=== PATIENT | male | born 1995 | race Caucasian/White ===

== ENCOUNTER 2023-05-30 19:58 | Inpatient (IN) | payer MEDICAID, SELFPAY ==
[2023-05-30 19:59] VITALS: BP 150/99; PULSE 100; RESP 16; TEMP 36.6; O2SAT 99; BMI 23.6
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
[2023-05-30 20:35] LABS: Absolute Lymphocyte Count 2.51 X10^3/uL (0.83-4.51); Absolute Neutrophil Count 8.4 X10^3/uL (2.0-7.7); Basophil# 0.04 X10^3/uL; Basophil% 0.3 % (0-1); Eosinophil# 0.08 X10^3/uL; Eosinophils% 0.7 % (0-5); Hematocrit 42.9 % (40-54); Lymphocyte # 2.51 X10^3/ul (0.83-4.51); Lymphocyte % 20.5 % (19-41); Mean Corp Hgb Conc 32.6 g/dL (32-36); Mean Corpuscular Hgb 28.5 pg (27.0-32.0); Mean Corpuscular Volume 87.2 fL (80-94); Mean Platelet Vol. 8.8 fl (6.2-12.0); Monocyte# 1.09 X10^3/uL; Monocyte% 8.9 % (0-10); NRBC Flagged by Analyzer 0 % (0-5); Neutrophil # 8.44 X10^3/uL (2.7-7.7); Neutrophil % 69.1 % (47-70); Platelet Count 397 K/mm3 (150-450); RBC Distribution Width CV 13.7 % (11.6-14.6); RBC Distribution Width SD 44.2 fl (35.1-43.9); Red Blood Count 4.92 M/mm3 (4.6-6.2); White Blood Count 12.2 K/mm3 (4.4-11.0)
[2023-05-30 20:51] LABS: AST(SGOT) 24 U/L (15-37); Alanine Aminotransfer ALT/SGPT 33 U/L (16-61); Albumin, Serum 3.9 g/dL (3.2-5.0); Alkaline Phosphatase 86 U/L (45-117); Anion Gap 5 (5-15); BUN 9 mg/dL (7-18); BUN/Creat Ratio 10.9 RATIO (10-20); Chloride 105 mmol/L (98-107); Creatinine, Serum 0.82 mg/dL (0.70-1.30); EST Glomerular Filtration Rate 118 mL/min (>60); Est Glom Filt Rate - Afr Amer 143 mL/min (>60); Estimated Creatinine Clearance 147.21 ml/min; Glucose 59 mg/dL (74-106); Potassium 3.4 mmol/L (3.5-5.1); Protein, Total 7.9 g/dL (6.4-8.2); Sodium Level 137 mmol/L (136-145)
[2023-05-30] MEDS: Thiamine Hydrochloride 100 MG Tablet PO (21:10)
[2023-05-30] MEDS: Folic Acid 1 MG Tablet PO (21:10)
[2023-05-30 21:23] LABS: Amphetamine Urine VISTA NEGATIVE (<1000 ng/mL); Barbiturate Urine VISTA NEGATIVE (< 200 ng/mL); Benzodiazepine Urine VISTA NEGATIVE (< 200 ng/mL); Cocaine Urine VISTA POSITIVE (< 300 ng/mL); Ecstacy Urine VISTA NEGATIVE (< 500 ng/mL); Methadone Urine VISTA NEGATIVE (< 300 ng/mL); PCP Urine VISTA NEGATIVE (< 25 ng/mL); THC Urine VISTA POSITIVE (< 50 ng/mL); Vista UDS pH Range 6
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
[2023-05-30 21:49] LABS: Bedside Glucose 110 mg/dL (74-106)
[2023-05-30 23:17] VITALS: BP 137/84; PULSE 98; RESP 16; O2SAT 99
[2023-05-30 23:33] VITALS: BP 120/83; PULSE 88; RESP 18; TEMP 36.7; O2SAT 97
[2023-05-30 23:39] VITALS: BMI 23.6
[2023-05-31] MEDS: Phenobarbital 32.4 MG Tablet 64.8 MG PO ×6 (01:04→21:40)
[2023-05-31] MEDS: MELATONIN 3 MG TABLET PO (01:04)
[2023-05-31] MEDS: 0.9% Normal Saline (1000mL) 1,000 ML 150 ML IV ×2 (01:05→06:59)
[2023-05-31] MEDS: Potassium Chloride Oral Tablet 20 MEQ 40 MEQ PO (03:11)
[2023-05-31] MEDS: Gabapentin 300 MG Capsule PO (03:13)
[2023-05-31 05:44] VITALS: BP 101/70; PULSE 60; RESP 16; TEMP 36.3; O2SAT 98
[2023-05-31] MEDS: hydrOXYzine PAM 25 MG Capsule 50 MG PO ×2 (05:49→17:20)
[2023-05-31 08:04] LABS: Absolute Lymphocyte Count 3.59 X10^3/uL (0.83-4.51); Absolute Neutrophil Count 3.6 X10^3/uL (2.0-7.7); Basophil# 0.04 X10^3/uL; Basophil% 0.5 % (0-1); Eosinophils% 2.4 % (0-5); Hematocrit 42.6 % (40-54); Hemoglobin 13.7 g/dL (13.0-16.5); Lymphocyte # 3.59 X10^3/ul (0.83-4.51); Lymphocyte % 43.7 % (19-41); Mean Corp Hgb Conc 32.2 g/dL (32-36); Mean Corpuscular Hgb 28.4 pg (27.0-32.0); Mean Corpuscular Volume 88.4 fL (80-94); Mean Platelet Vol. 9.1 fl (6.2-12.0); Monocyte# 0.78 X10^3/uL; Monocyte% 9.5 % (0-10); NRBC Flagged by Analyzer 0 % (0-5); Neutrophil # 3.56 X10^3/uL (2.7-7.7); Neutrophil % 43.4 % (47-70); Platelet Count 368 K/mm3 (150-450); RBC Distribution Width CV 13.8 % (11.6-14.6); RBC Distribution Width SD 44.6 fl (35.1-43.9); Red Blood Count 4.82 M/mm3 (4.6-6.2); White Blood Count 8.2 K/mm3 (4.4-11.0)
[2023-05-31 08:57] VITALS: BP 98/67; PULSE 60; RESP 18; TEMP 36.6; O2SAT 100
[2023-05-31] MEDS: Multivitamins,Therapeutic Tablet 1 TABLET PO (08:59)
[2023-05-31] MEDS: Thiamine Hydrochloride 100 MG Tablet PO (08:59)
[2023-05-31] MEDS: Folic Acid 1 MG Tablet PO (08:59)
[2023-05-31 09:02] LABS: Anion Gap 5 (5-15); BUN 8 mg/dL (7-18); BUN/Creat Ratio 11.3 RATIO (10-20); Calcium,Total 8.6 mg/dL (8.5-10.1); Chloride 109 mmol/L (98-107); Creatinine, Serum 0.71 mg/dL (0.70-1.30); EST Glomerular Filtration Rate 141 mL/min (>60); Est Glom Filt Rate - Afr Amer 170 mL/min (>60); Estimated Creatinine Clearance 170.02 ml/min; Glucose 76 mg/dL (74-106); Potassium 4.3 mmol/L (3.5-5.1); Sodium Level 139 mmol/L (136-145); Thyroid Stim Hormone (TSH) 1.84 uIU/mL (0.358-3.74)
--- NOTE | 2023-05-31 10:32 | PCM.PN.HOSP ---
Reason for Visit Reason for Visit: Diagnoses Alcohol abuse, uncomplicated (05/30/23) Cannabis abuse, uncomplicated (05/30/23) Cocaine abuse, uncomplicated (05/30/23) Tobacco use (05/30/23) Subjective Subjective Patient is a 28-year-old gentleman with history of chronic alcohol dependence admitted for medical stabilization Objective Data Objective Data Vital Signs: Vital Signs Temp Pulse Resp BP Pulse Ox O2 Del Method 97.8 F 60 18 98/67 100 Room Air 05/31/23 08:57 05/31/23 08:57 05/31/23 08:57 05/31/23 08:57 05/31/23 08:57 05/31/23 08:57 Oxygen Delivery Method Room Air Weight: 78.9 kg Body Mass Index (BMI) 23.6 Intake & Output: Intake and Output for Last 24 Hours 05/29/23 05/30/23 05/31/23 23:59 23:59 23:59 Intake Total 1590 / 1590 Balance 1590 / 1590 Lab / Micro Data 05/31/23 07:20 05/31/23 07:20 Labs: Laboratory Results - last 24 hr 05/30/23 20:24: WBC 12.2 H, RBC 4.92, Hgb 14.0, Hct 42.9, MCV 87.2, MCH 28.5, MCHC 32.6, RDW Std Deviation 44.2 H, RDW Coeff of Rivas 13.7, Plt Count 397, MPV 8.8, Immature Gran % (Auto) 0.500, Neut % (Auto) 69.1, Lymph % (Auto) 20.5, [place] % (Auto) 8.9, Eos % (Auto) 0.7, Baso % (Auto) 0.3, Absolute Neuts (auto) 8.4 H, Absolute Lymphs (auto) 2.51, Nucleated RBC % 0, Sodium 137, Potassium 3.4 L, Chloride 105, Carbon Dioxide 27.0, Anion Gap 5, BUN 9, Creatinine 0.82, Estim Creat Clear Calc 147.21, Est GFR (MDRD) Af Amer 143, Est GFR (MDRD) Non-Af 118, BUN/Creatinine Ratio 10.9, Glucose 59 L, Calcium 9.0, Total Bilirubin 0.60, AST 24, ALT 33, Alkaline Phosphatase 86, Total Protein 7.9, Albumin 3.9, Globulin 4.0, Albumin/Globulin Ratio 1.0, Urine Opiates Screen NEGATIVE, Urine Methadone Screen NEGATIVE, Ur Barbiturates Screen NEGATIVE, Ur Phencyclidine Scrn NEGATIVE, Ur Amphetamines Screen NEGATIVE, MDMA (Ecstasy) Screen NEGATIVE, U Benzodiazepines Scrn NEGATIVE, Urine Cocaine Screen POSITIVE H, U Cannabinoids Screen POSITIVE H, Ur Drug Screen Comment , Ethyl Alcohol 58.0 05/30/23 21:32: POC Glucose 110 H 05/31/23 07:20: WBC 8.2, RBC 4.82, Hgb 13.7, Hct 42.6, MCV 88.4, MCH 28.4, MCHC 32.2, RDW Std Deviation 44.6 H, RDW Coeff of Rivas 13.8, Plt Count 368, MPV 9.1, Immature Gran % (Auto) 0.500, Neut % (Auto) 43.4 L, Lymph % (Auto) 43.7 H, [place] % (Auto) 9.5, Eos % (Auto) 2.4, Baso % (Auto) 0.5, Absolute Neuts (auto) 3.6, Absolute Lymphs (auto) 3.59, Nucleated RBC % 0, Sodium 139, Potassium 4.3, Chloride 109 H, Carbon Dioxide 25.0, Anion Gap 5, BUN 8, Creatinine 0.71, Estim Creat Clear Calc 170.02, Est GFR (MDRD) Af Amer 170, Est GFR (MDRD) Non-Af 141, BUN/Creatinine Ratio 11.3, Glucose 76, Calcium 8.6, TSH 1.84 Physical Exam Narrative GENERAL: cooperative HEENT: Atraumatic; normocephalic EYES; Anicteric, Normal Conjunctiva NECK; supple, normal thyroid, RESPIRATORY: Diminished to auscultation CARDIOVASCULAR: Regular S1 S2, GI: soft, normoactive bowel sounds, : No Renal angle tenderness; EXTREMITIES: No edema, no clubbing, MUSCULOSKELETAL: no muscle wasting NEURO: Awake; no lateralizing signs. SKIN: No Rash PSYCH; Flat affect Assessment & Plan Assessment/Plan (1) Alcohol abuse: PLAN: Plan Patient is a 28-year-old gentleman with history of chronic alcohol dependence admitted for medical stabilization 1. Chronic alcohol dependence ? At risk for withdrawal. Admitted to regular nursing floor started on phenobarb taper counseled on cessation 2. Hypokalemia -Corrected per protocol 3. Polysubstance dependence Including alcohol cocaine and cannabis counseled on cessation 4. Tobacco dependence - Counseled on cessation, offered nicotine patch for tobacco cravings 5. DVT prophylaxis -low risk encourage early ambulation Time spent in the patient's overall evaluation,decision-making process, review of diagnostic data, adjustment of management, discussion with other providers, nursing nursing and ancillary staff involved in patient's care documentation, 35 Minutes Charges/Coding Visit Charges Inpatient E&M: 10196 Subs Hosp L2
--- NOTE | 2023-05-31 11:19 | ADDICTION ---
This com writer met with PT to conduct ASAM, MSE, AUDIT, DUDIT assessments and to plan for d/c. PT A+Ox4 and participated actively. All assessments completed and placed in PT's chart. PT plans to f/u with residential treatment however he will need to renew his medicaid. Pt kept falling asleep so we will call again tomorrow for the renewal and then this worker will work on placement.
[2023-05-31 13:03] VITALS: BP 96/61; PULSE 78; RESP 18; TEMP 36.6; O2SAT 98
[2023-05-31 17:16] VITALS: BP 104/69; PULSE 76; RESP 18; TEMP 37.1; O2SAT 97
[2023-05-31 21:38] VITALS: BP 111/74; PULSE 91; RESP 16; TEMP 36.6; O2SAT 99
[2023-05-31] MEDS: traZODone 100 MG Tablet PO (21:44)
[2023-06-01] MEDS: Phenobarbital 32.4 MG Tablet 64.8 MG PO ×4 (01:58→14:16)
[2023-06-01 01:59] VITALS: BP 103/65; PULSE 72; RESP 16; TEMP 36.6; O2SAT 95
[2023-06-01 05:42] VITALS: BP 100/62; PULSE 81; RESP 16; TEMP 36.4; O2SAT 96
--- NOTE | 2023-06-01 08:29 | PCM.PN.HOSP ---
Reason for Visit Reason for Visit: Diagnoses Alcohol abuse, uncomplicated (05/30/23) Cannabis abuse, uncomplicated (05/30/23) Cocaine abuse, uncomplicated (05/30/23) Tobacco use (05/30/23) Subjective Subjective Patient seen tolerating phenobarb taper well so far Objective Data Objective Data Vital Signs: Vital Signs Temp Pulse Resp BP Pulse Ox O2 Del Method 97.5 F L 81 16 100/62 96 Room Air 06/01/23 05:42 06/01/23 05:42 06/01/23 05:42 06/01/23 05:42 06/01/23 05:42 06/01/23 05:42 Oxygen Delivery Method Room Air Weight: 78.9 kg Body Mass Index (BMI) 23.6 Intake & Output: Intake and Output for Last 24 Hours 05/30/23 05/31/23 06/01/23 23:59 23:59 23:59 Intake Total 2550 / 2550 Balance 2550 / 2550 Lab / Micro Data 05/31/23 07:20 05/31/23 07:20 Labs: Laboratory Results - last 24 hr 05/31/23 07:20: Sodium 139, Potassium 4.3, Chloride 109 H, Carbon Dioxide 25.0, Anion Gap 5, BUN 8, Creatinine 0.71, Estim Creat Clear Calc 170.02, Est GFR (MDRD) Af Amer 170, Est GFR (MDRD) Non-Af 141, BUN/Creatinine Ratio 11.3, Glucose 76, Calcium 8.6, TSH 1.84 Physical Exam Narrative GENERAL: cooperative HEENT: Atraumatic; normocephalic EYES; Anicteric, Normal Conjunctiva NECK; supple, normal thyroid, RESPIRATORY: Diminished to auscultation CARDIOVASCULAR: Regular S1 S2, GI: soft, normoactive bowel sounds, : No Renal angle tenderness; EXTREMITIES: No edema, no clubbing, MUSCULOSKELETAL: no muscle wasting NEURO: Awake; no lateralizing signs. SKIN: No Rash PSYCH; Flat affect Assessment & Plan Assessment/Plan (1) Alcohol abuse: PLAN: Plan Patient is a 28-year-old gentleman with history of chronic alcohol dependence admitted for medical stabilization 1. Chronic alcohol dependence ? At risk for withdrawal. Admitted to regular nursing floor started on phenobarb taper counseled on cessation ? 06/01/2023 patient has tolerated phenobarb taper well so 2. Hypokalemia -Corrected per protocol 3. Polysubstance dependence Including alcohol cocaine and cannabis counseled on cessation 4. Tobacco dependence - Counseled on cessation, offered nicotine patch for tobacco cravings 5. DVT prophylaxis -low risk encourage early ambulation Time spent in the patient's overall evaluation,decision-making process, review of diagnostic data, adjustment of management, discussion with other providers, nursing nursing and ancillary staff involved in patient's care documentation, 35 Minutes Charges/Coding Visit Charges Inpatient E&M: 80279 Subs Hosp L2
[2023-06-01] MEDS: Folic Acid 1 MG Tablet PO (09:42)
[2023-06-01] MEDS: Multivitamins,Therapeutic Tablet 1 TABLET PO (09:42)
[2023-06-01] MEDS: Thiamine Hydrochloride 100 MG Tablet PO (09:43)
[2023-06-01 09:45] VITALS: BP 104/64; PULSE 77; RESP 16; TEMP 36.8; O2SAT 98
--- NOTE | 2023-06-01 14:19 | ADDICTION ---
Pt was approved for Medicaid. He was also approved for Day in [facility]. They will be picking him up today and taking him to residential treatment.
[2023-06-01 14:24] VITALS: BP 113/70; PULSE 72; RESP 18; TEMP 36.8; O2SAT 94
--- NOTE | 2023-06-01 14:25 | PCM.DC.SUM ---
Providers Date of Admission: 05/30/23 Date of Discharge: 06/01/23 Primary Care Physician: Ewelina Primary Care Phys Reason For Visit: IMPENDING ALCOHOL WITHDRAWAL IN THE SETTING OF Diagnosis Discharge Diagnosis (1) Alcohol abuse: Status: Acute Code(s): F10.10 - Alcohol abuse, uncomplicated Plan Patient is a 28-year-old gentleman with history of chronic alcohol dependence admitted for medical stabilization 1. Chronic alcohol dependence ? At risk for withdrawal. Admitted to regular nursing floor started on phenobarb taper counseled on cessation ? 06/01/2023 patient has tolerated phenobarb taper well so ? Patient was discharged to a residential facility 2. Hypokalemia -Corrected per protocol 3. Polysubstance dependence Including alcohol cocaine and cannabis counseled on cessation 4. Tobacco dependence - Counseled on cessation, offered nicotine patch for tobacco cravings 5. DVT prophylaxis -low risk encourage early ambulation Time spent in the patient's overall evaluation,decision-making process, review of diagnostic data, adjustment of management, discussion with other providers, nursing nursing and ancillary staff involved in patient's care documentation, 35 Minutes Hospital Course Summary of Care Provided Minutes Spent on Discharge: 40 Physical Exam Narrative GENERAL: cooperative HEENT: Atraumatic; normocephalic EYES; Anicteric, Normal Conjunctiva NECK; supple, normal thyroid, RESPIRATORY: Diminished to auscultation CARDIOVASCULAR: Regular S1 S2, GI: soft, normoactive bowel sounds, : No Renal angle tenderness; EXTREMITIES: No edema, no clubbing, MUSCULOSKELETAL: no muscle wasting NEURO: Awake; no lateralizing signs. SKIN: No Rash PSYCH; Flat affect Weight / BMI Weight Weight: 78.9 kg Body Mass Index (BMI) 23.6 ABG / Lab / Microbiology Data 05/31/23 07:20 05/31/23 07:20 D/C Instructions Discharge Diet: No restrictions Discharge Activity: Return to Normal Activity Call your doctor if you observe: Fever of 101 or Higher, Shortness of breath, Fainting spells and Chest pain Meaningful Use Info Meaningful Use Diagnoses (Choose all that apply): None applicable Discharge Plan Admission Admit Date/Time: 05/30/23 21:48 Attending Provider: Neptali Cosme Primary Care Provider: Care Physician,No Primary Consulting Providers: Neptali Flynn Discharge Orders/Prescriptions Referrals / Follow Up: Care Physician,No Primary [Primary Care Provider] - NOT,DEFINED [Non-Staff] - Disposition Disposition (needs filled in before D/C Order can be placed): Inpatient Rehab Unit/Facility Charges/Coding Visit Charges Inpatient E&M: 76408 Disch Hosp >30min
== END 2023-06-01 16:15 | DRG 774 ==
LOC: ED 21:01 → MS3 22:15
PROVIDERS: Admitting Provider Internal Medicine; Emergency Provider Emergency Medicine; Visit Provider Internal Medicine
DX: F10.20 Alcohol dependence, uncomplicated (principal); F14.20 Cocaine dependence, uncomplicated; E87.6 Hypokalemia; F12.20 Cannabis dependence, uncomplicated; F17.290 Nicotine dependence, other tobacco product, uncomplicated; Y90.2 Blood alcohol level of 40-59 mg/100 ml
CPT/HCPCS: 36415; 80048; 80053; 80307; 82077; 82962; 84443; 85025; 99283; J7030; A4216